=== PATIENT | male | born 1975 | race Caucasian/White ===

== ENCOUNTER 2022-08-22 19:20 | Inpatient (IN) | payer BC ==
[2022-08-22 19:31] VITALS: BMI 30.4
[2022-08-22] MEDS ORDERED: ATORVASTATIN CA 40 MG TABLET (FP) PO ONE (20:29)
[2022-08-22] MEDS ORDERED: ONDANSETRON 4 MG/2 ML VIAL IVPUSH ONE (20:29)
[2022-08-22] MEDS ORDERED: LACTATED RINGERS SOLUTION 1000 ML INFUS.BAG IV ONE (20:30)
[2022-08-22 21:16] LABS: BASO % 0.9 % (0-2.0); HEMATOCRIT 46.7 % (35.4-49); HEMOGLOBIN 16.4 GM/dL (11.7-16.9); LYMPH % 14.4 % (8-40); MCHC 35.1 g/dl (32.0-35.9); MEAN CELL VOLUME 79.8 fl (80-96); MEAN PLT VOLUME 8.4 fl (7.5-11.1); MONO % 7.4 % (3.8-10.2); NEUT % 76.3 % (42.8-82.8); PLATELET COUNT 254 10^3/uL (134-434); RBC 5.85 M/mm3 (4.00-5.60); RDW 13.9 % (11.9-15.9); WHITE BLOOD COUNT 9.8 K/mm3 (4.0-10.0)
[2022-08-22 21:22] LABS: INR 1.16 (0.83-1.09); PROTHROMBIN TIME (PATIENT) 13.4 SEC (9.7-13.0)
[2022-08-22 21:25] LABS: ACTIVATED PTT 29.2 SECONDS (25.2-36.5)
[2022-08-22 21:29] LABS: CHLORIDE 95 mmol/L (98-107); SODIUM 128 mmol/L (136-145)
[2022-08-22 21:32] LABS: ALBUMIN 3.7 g/dl (3.4-5.0); BLOOD UREA NITROGEN 14.5 mg/dL (7-18); CALCIUM 8.9 mg/dL (8.5-10.1); CO2 26 mmol/L (21-32); GLUCOSE,RANDOM 89 mg/dL (74-106); MAGNESIUM 2.3 mg/dL (1.8-2.4)
[2022-08-22 21:36] LABS: CREATININE 1.3 mg/dL (0.55-1.3)
[2022-08-22 21:38] LABS: ALK PHOS 72 U/L (45-117); BILIRUBIN,TOTAL 0.4 mg/dL (0.2-1); CHOLESTEROL 216 mg/dL (50-200); HDL CHOLESTEROL 49 mg/dL (40-60); LDL CHOLESTEROL (ONLY SJRH) 167 mg/dL (5-100); TOT PROT 8.1 g/dl (6.4-8.2); TRIGLYCERIDES 150 mg/dL (0-150)
[2022-08-22 21:48] LABS: ANION GAP 7 MMOL/L (8-16); SGOT/AST 115 U/L (15-37); SGPT/ALT 34 U/L (13-61)
[2022-08-22 22:19] LABS: PH,URINE 6.5 (5.0-8.0); URINE APPEARANCE CLEAR; URINE BILIRUBIN NEGATIVE (NEGATIVE); URINE COLOR YELLOW; URINE GLUCOSE (UA) 1+ (NEGATIVE); URINE KETONE TRACE (NEGATIVE); URINE LEUK ESTERASE NEGATIVE (NEGATIVE); URINE NITRITE NEGATIVE (NEGATIVE); URINE PROTEIN TRACE (NEGATIVE); URINE UROBILINOGEN 0.2 mg/dL (0.2-1.0)
[2022-08-22 22:57] LABS: BASO % 0.6 % (0-2.0); EOS % 0.6 % (0-4.5); HEMOGLOBIN 16.2 GM/dL (11.7-16.9); LYMPH % 13.7 % (8-40); MCH 27.7 pg (25.7-33.7); MCHC 34.4 g/dl (32.0-35.9); MEAN CELL VOLUME 80.3 fl (80-96); MEAN PLT VOLUME 7.4 fl (7.5-11.1); MONO % 6.1 % (3.8-10.2); PLATELET COUNT 238 10^3/uL (134-434); RBC 5.85 M/mm3 (4.00-5.60); RDW 13.7 % (11.9-15.9); WHITE BLOOD COUNT 12.6 K/mm3 (4.0-10.0)
[2022-08-23] MEDS ORDERED: levETIRAcetam 500 MG/5 ML INJECTION VIAL IVPB ONE (05:58)
[2022-08-23] MEDS ORDERED: SODIUM CHLORIDE 1,000 ML IV STA (06:01)
[2022-08-23 07:50] VITALS: TEMP 97.7
[2022-08-23 09:21] LABS: CALCIUM 8.7 mg/dL (8.5-10.1)
[2022-08-23 09:22] LABS: ALBUMIN 3.3 g/dl (3.4-5.0)
[2022-08-23 09:25] LABS: BLOOD UREA NITROGEN 19.7 mg/dL (7-18); MAGNESIUM 2.1 mg/dL (1.8-2.4)
[2022-08-23 09:29] LABS: PHOSPHOROUS 3.1 mg/dL (2.5-4.9)
[2022-08-23 09:31] LABS: BILIRUBIN,TOTAL 0.4 mg/dL (0.2-1); TOT PROT 6.5 g/dl (6.4-8.2)
[2022-08-23] MEDS ORDERED: PATIENT'S OWN MEDICATION (NON-FORMULARY) (Valsartan/Hydrochlorothiazide [Valsartan-Hctz 16 PO SCH (10:00)
[2022-08-23] MEDS ORDERED: VALSARTAN 160 MG TABLET PO SCH (10:00)
[2022-08-23] MEDS ORDERED: ENOXAPARIN NA (PORCINE) 40 MG/0.4 ML DISP.SYRIN SQ SCH (10:00)
[2022-08-23 10:15] LABS: CREATININE 1.2 mg/dL (0.55-1.3)
[2022-08-23 12:39] LABS: BLOOD UREA NITROGEN 18.6 mg/dL (7-18)
[2022-08-23 12:43] LABS: CREATININE 1.2 mg/dL (0.55-1.3)
[2022-08-23 12:45] LABS: CALCIUM 8.6 mg/dL (8.5-10.1)
[2022-08-23] MEDS ORDERED: VALSARTAN 80 MG TABLET ONE (13:15)
[2022-08-23] MEDS ORDERED: ENOXAPARIN NA (PORCINE) 40 MG/0.4 ML DISP.SYRIN SQ ONE (13:16)
[2022-08-23 14:06] VITALS: RESP 18
[2022-08-23 16:16] VITALS: BP 126/82; PULSE 73
[2022-08-23] MEDS ORDERED: ATORVASTATIN CA 80 MG TABLET (FP) PO SCH (22:00)
== END 2022-08-23 20:14 | disposition left against medical advice (07) | DRG 312 ==
LOC: JER 19:20 → JERBED 20:35
PROVIDERS: ADMIT Internal Medicine; ATTEND Internal Medicine
DX: R55 Syncope and collapse (principal); E87.1 Hypo-osmolality and hyponatremia; R42 Dizziness and giddiness; I10 Essential (primary) hypertension; E78.5 Hyperlipidemia, unspecified; R20.0 Anesthesia of skin
CPT/HCPCS: 0241U-QW; 36415; 70450-TC; 70496-TC; 70498-TC; 70551-TC; 71045-TC-FY; 80048; 80053; 80061; 81003; 82962; 83036; 83735; 84100; 84443; 84484; 85025; 85610; 85730; 93005; 93010; 99285-25; G0378